=== PATIENT | female | born 1995 | race African-American/Black ===

== ENCOUNTER 2017-02-09 20:49 | Emergency (ER) | payer SELFPAY ==
--- NOTE | 2017-02-09 23:29 | ULT ---
TRANSVAGINAL PELVIC ULTRASOUND (GRAYSCALE, COLOR FLOW AND SPECTRAL DOPPLER): History: 30-year-old female with left lower quadrant pain. FINDINGS: The uterus measures 8.5 x 4 x 6 cm with endometrial thickness of 1.4 cm. The right ovary measures 3. 6 x 2.2 x 2.2 cm and the left ovary measures 2.9 x 1.3 x 2.3 cm. Flow is demonstrated to both ovarie s. A single intrauterine gestational sac is seen measuring 0.24 cm in diameter. This corresponds to an estimated gestational age of 4 weeks 6 days. No yolk sac or pole is seen. No free fluid is not ed in the cul-de-sac. IMPRESSION: Single intrauterine gestation of 4 weeks 6 days gestational age. No pole is seen likely due to early . Recommend correlation with serial Beta HCGs and follow up ultrasound. POS: [facility]
== END 2017-02-09 23:22 | disposition home or self-care (01) ==
LOC: ERS 20:49
DX: O23.591 Infection of other part of genital tract in pregnancy, first trimester (principal); Z3A.01 Less than 8 weeks gestation of pregnancy
CPT/HCPCS: 76856